=== PATIENT | male | born 1960 ===

== ENCOUNTER 2024-11-13 16:22 | Outpatient (AMB) | payer OTHER, SELFPAY ==
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
--- OUTSIDE RECORDS SUMMARY | 2024-11-13 17:06 | XMS_ITS | Encounter Summary ---
Author Organization [facility] Address [address] [place] [address] Phone Care Team Providers Care Crime Lab Analyst Name Role Phone Thierry Mariee MD Primary Care Provider [phone] Mustapha Alcazar MD, MPH Primary Care Provider + Sabrina Brewster MD Primary Care Provider [phone] Get Pollack MD Primary Care Provider [phone] Encounter Details Date Type Department Care Team (Late st Contact Info) Description 03/08/2023 Procedure Pass [facility], Ct Scan - [address] [address] Social History Tobacco Use Types Packs/Day Years Used Date Smoking Tobacco: Former Cigarettes 1 979 - 1984 Smokeless Tobacco: Never Alcohol Use Standard Drinks/Week Comments No 0 (1 standard drink = 0.6 oz pur e alcohol) Education Answer Date Recorded Are you interested in more education? Not on shanthi e 07/15/2022 Are you concerned about learning? Not on file 07/15/2022 No 07/15/2022 No 07/15/2022 Digital Access Answer Date Recorded No 08/13/2022 No 08/13/2022 Reliable internet access at home? Not on file 08/13/2022 Device with a working camera? Not on file Intimate Partner Violence Answer Date R ecorded Are you denied basic needs s uch as food, clothing, or medical care? No 03/08/2023 In the past 12 months have y ou been in a relationship with a person who hurts, threatens, or tries to control you? No 03/08/2023 Are you denied basic needs s uch as food, clothing, or medical care? No 03/08/2023 In the past 12 months have y ou been in a relationship with a person who hurts, threatens, or tries to control you? No 03/08/2023 Sex and Gender Information Value Date Recorded Sex Assigned at Male 06/09/2019 12:42 PM EDT Legal Sex Male 9:48 PM EDT Gender Identity Male 06/09/2019 12:42 PM EDT Sexual Orientation Straight 06/09/2019 12 :42 PM EDT documented as of this encounter Functional Status * Calculated C-SSRS Risk Score (Lifetime/Recent) Answer Date of Assessment Author No Risk Indicated 03/08/2023 5:04 PM Tyrone Santiago, JANY * [place] Suicide Severity Rating Scale (Screener/Recent Self-Report) Question Answer Date of Assessment Author 1. Wish to be (Past 1 Month) No 023 5:04 PM Tyrone Santiago, RN 2. Non-Specific Active Suici alexy Thoughts (Past 1 Month) No 03/08/2023 5:04 PM Guillermina Santiago, RN 6. Suicidal Behavior (Lifetime) No 3 5:04 PM Tyrone Santiago, RN documented as of this encounter Plan of Treatment Upcoming Encounters Date Type Department Care Team (Late st Contact Info) Description 03/26/2025 8:00 AM EST Office Visit [facility] [address] [place] [address] 3rd Floor, [address] [place] [address] Tyrell Alas MD [address] [place] [address], [address] [address] [email or web address] documented as of this encounter Visit Diagnoses Not on filedocumented in this encounter Additional Health Concerns Infection Onset Date Last Indicated Resolved Time CoV-Risk 05/25/2023 05/25/2023 06/05/2023 1:22 AM EDT CoV-Risk 11/20/2023 11/20/2023 11/20/2023 2:44 PM EDT COVID-19 11/20/2023 11/20/2023 12/11/2023 1:24 AM EDT CoV-Risk 04/24/2024 04/24/2024 05/05/2024 1:22 AM EST documented as of this encounter Care Teams Crime Lab Analyst Relationship Specialty Start Date End Date Thierry Mariee MD [address] [place] [address] [email or web address] PCP - General Family Medicine 03/08/23 05/24/23 Mustapha Alcazar MD, MPH [address] [place] [address] [email or web address] PCP - General Family Medicine 05/25/23 11/19/23 Sabrina Brewster MD [address] [place] [address] PCP - General Infectious Diseases 11/20/23 04/23/24 Get Pollack MD [address] [place] [address] [place] [phone] [email or web address] PCP - General Internal Medicine 04/24/24 documented as of this encounter Additional Source Comments The information contained in this document represents components of the legal health record. It is not the complete legal health record.[facility]
--- OUTSIDE RECORDS SUMMARY | 2024-11-13 17:06 | XMS_ITS | Encounter Summary ---
Author Organization [facility] Address [address] [facility] [address] [place] [address] Phone Care Team Providers Care Salvage Worker Name Role Phone Thierry Mariee MD Primary Care Provider [phone] Mustapha Alcazra MD, MPH Primary Care Provider + Sabrina Brewster MD Primary Care Provider [phone] Get Pollack MD Primary Care Provider [phone] Encounter Details Date Type Department Care Team (Late st Contact Info) Description 03/08/2023 Procedure Pass [facility], [address] [address] Social History Tobacco Use Types Packs/Day Years [...] 03/08/2023 5:04 PM Tyrone Santiago, JANY * [place] Suicide Severity Rating Scale (Screener/Recent Self-Report) Question [...] Description 03/26/2025 8:00 AM EST Office Visit [facility] [address] [place] [address] 3rd Floor, [address] [place] [address] Tyrell Alas MD [address] [place] [address], [address] [address] [email or web address] documented as of this encounter Visit Diagnoses Not on filedocumented in this encounter Additional Health Concerns Infection Onset Date Last Indicated Resolved Time CoV-Risk 05/25/2023 05/25/2023 06/05/2023 1:22 AM EDT CoV-Risk 11/20/2023 11/20/2023 11/20/2023 2:44 PM EDT COVID-19 11/20/2023 11/20/2023 12/11/2023 1:24 AM EDT CoV-Risk 04/24/2024 04/24/2024 05/05/2024 1:22 AM EST documented as of this encounter Care Teams Salvage Worker Relationship Specialty Start Date End Date hTierry Mariee MD [address] [place] [address] [email or web address] PCP - General Family Medicine 03/08/23 05/24/23 Mustapha Alcazar MD, MPH [address] [place] [address] [email or web address] PCP - General Family Medicine 05/25/23 11/19/23 Sabrina Brewster MD [address] [place] [address] PCP - General Infectious Diseases 11/20/23 04/23/24 Get Pollack MD [address] [place] [address] [place] [address] [email or web address] PCP - General Internal Medicine 04/24/24 documented as of this encounter Additional Source Comments The information contained in this document represents components of the legal health record. It is not the complete legal health record.[facility]
--- OUTSIDE RECORDS SUMMARY | 2024-11-13 17:06 | XMS_ITS | Encounter Summary ---
Author Organization [facility] Address [address] [facility] [address] [place] [address] Phone Care Team Providers Care Senior Materials Analyst Name Role Phone Thierry Mariee MD Primary Care Provider [phone] Mustapha Alcazar MD, MPH Primary Care Provider + Sabrina Brewster MD Primary Care Provider [phone] Get Pollack MD Primary Care Provider [phone] Encounter Details Date Type Department Care Team (Late st Contact Info) Description 03/08/2023 Procedure Pass [facility], Ct Scan - [address] [address] Social History Tobacco Use Types Packs/Day Years [...] 03/08/2023 5:04 PM Tyrone Santiago, JANY * [place] Suicide Severity Rating Scale (Screener/Recent Self-Report) Question [...] Description 03/26/2025 8:00 AM EST Office Visit [facility] [address] [place] [address] 3rd Floor, [address] [place] [address] Tyrell Alas MD [address] [place] [address], [address] [address] [email or web address] documented as of this encounter Visit Diagnoses Not on filedocumented in this encounter Additional Health Concerns Infection Onset Date Last Indicated Resolved Time CoV-Risk 05/25/2023 05/25/2023 06/05/2023 1:22 AM EDT CoV-Risk 11/20/2023 11/20/2023 11/20/2023 2:44 PM EDT COVID-19 11/20/2023 11/20/2023 12/11/2023 1:24 AM EDT CoV-Risk 04/24/2024 04/24/2024 05/05/2024 1:22 AM EST documented as of this encounter Care Teams Senior Materials Analyst Relationship Specialty Start Date End Date Thierry Mariee MD [address] [place] [address] [email or web address] PCP - General Family Medicine 03/08/23 05/24/23 Mustapha Alcazar MD, MPH [address] [place] [address] [email or web address] PCP - General Family Medicine 05/25/23 11/19/23 Sabrina Brewster MD [address] [place] [address] PCP - General Infectious Diseases 11/20/23 04/23/24 Get Pollack MD [address] [place] [address] [place] [address] [email or web address] PCP - General Internal Medicine 04/24/24 documented as of this encounter Additional Source Comments The information contained in this document represents components of the legal health record. It is not the complete legal health record.[facility]
--- OUTSIDE RECORDS SUMMARY | 2024-11-13 17:06 | XMS_ITS | Encounter Summary ---
Author Organization [facility] Address [address] [place] [address] [place] [address] Phone Care Team Providers Care Education Analyst Name Role Phone George Baca MD Primary Care Provider George Baca MD Unavailable [phone] Miguel Evans MD Unavailable Juan Antonio Wall DO Unavailable Mynor Kumari CHIP PERSON Unavailable Ida Whitlock MD Unavailable George Baca MD Unavailable [phone] Unknown, Unknown Primary Care Provider UnavaThierry Hammonds MD Unavailable Mustapha Alcazar MD, MPH Primary Care Provider + Mustapha Alcazar MD, MPH Unavailable Thierry Mariee MD Primary Care Provider [phone] Thierry Mariee MD Unavailable Thierry Mariee MD Primary Care Provider [phone] Mustapha Alcazar MD, MPH Primary Care Provider + Sabrina Brewster MD Primary Care Provider Get Pollack MD Primary Care Provider + [phone] Encounter Details Date Type Department Care Team (Late st Contact Info) Description 07/17/2017 Procedure Pass [facility], Ct Scan - [address] [address] Social History Tobacco Use Types Packs/Day Years Used Date Smoking Tobacco: Former Alcohol Use Standard Drinks/Week Comments No 0 (1 standard drink = 0.6 oz pur e alcohol) Sex and Gender Information Value Date Recorded Sex Assigned at Male 06/09/2019 12:42 PM EDT Legal Sex Male 9:48 PM EDT Gender Identity Male 06/09/2019 12:42 PM EDT Sexual Orientation Straight 06/09/2019 12 :42 PM EDT documented as of this encounter Plan of Treatment Upcoming Encounters Date Type Department Care Team (Late Contact Info) Description 03/26/2025 8:00 AM EST Office Visit [facility] [address] [place] [address] 3rd Floor, [address] [place] [address] Tyrell Alas MD [address] [place] [address] [email or web address] documented as of this encounter Visit Diagnoses Not on filedocumented in this encounter Additional Health Concerns Infection Onset Date Last Indicated Resolved Time CoV-Risk 05/25/2023 05/25/2023 06/05/2023 1:22 AM EDT CoV-Risk 11/20/2023 11/20/2023 11/20/2023 2:44 PM EDT COVID-19 11/20/2023 11/20/2023 12/11/2023 1:24 AM EDT CoV-Risk 04/24/2024 04/24/2024 05/05/2024 1:22 AM EST documented as of this encounter Care Teams Education Analyst Relationship Specialty Start Date End Date George Baca MD [address] [place] [address] PCP - General 01/03/17 04/02/21 Unknown, George, PCP - General 04/03/21 08/18/21 Mustapha Alcazar MD, MPH [address] [place] [address] [email or web address] PCP - General Family Medicine 08/19/21 12/08/21 Thierry Mariee MD [address] [place] [address] [email or web address] PCP - General Family Medicine 12/09/21 03/07/23 Thierry Mariee MD [address] [place] [address] [email or web address] PCP - General Family Medicine 03/08/23 05/24/23 Mustapha Alcazar MD, MPH [address] [place] [address] [email or web address] PCP - General Family Medicine 05/25/23 11/19/23 Sabrina Brewster MD [address] [place] [address] PCP - General Infectious Diseases 11/20/23 04/23/24 Get Pollack MD [address] [place] [address] [place] [address] PCP - General Internal Medicine 04/24/24 George Baca MD [address] [place] [address] Historical LMR Provider 01/05/17 2 Miguel Evans MD [address] [place] [address], [facility] [address] [place] [address] Historical LMR Provider 01/05/17 03/27/21 Juan Antonio Wall DO [address] [facility] [address] [place] [address] j Historical LMR Provider 01/05/17 03/27/21 Mynor Kumari CNP [address] [facility], 2nd [place] [address] Historical LMR Provider 01/05/17 03/27/21 Ida Whitlock MD [address] [place] [address] [email or web address] Historical LMR Provider 01/05/17 03/27/21 George Baca MD [address] [place] [address] Insurance Assigned Provider 06/17/17 04/25/21 Thierry Mariee MD [address] [place] [address] Insurance Assigned Provider 04/25/21 10/23/21 Mustapha Alcazar MD, MPH [address] [place] [address] Insurance Assigned Provider 10/23/21 01/23/22 Thierry Mariee MD [address] [place] [address] [email or web address] Insurance Assigned Provider 01/23/22 11/26/22 documented as of this encounter Additional Source Comments The information contained in this document represents components of the legal health record. It is not the complete legal health record.[facility]
--- OUTSIDE RECORDS SUMMARY | 2024-11-13 17:06 | XMS_ITS | Encounter Summary ---
Author Organization [facility] Address [address] [place] [address] [place] [address] Phone Care Team Providers Care Plodding Machine Operator Name Role Phone George Baca MD Primary Care Provider George Baca MD Unavailable [phone] Miguel Evans MD Unavailable [phone] Juan Antonio Wall DO Unavailable Mynor Kumari AVIONICS MECHANIC Unavailable Ida Whitlock MD Unavailable George Baca MD Unavailable [phone] Unknown, Unknown Primary Care Provider UnavaThierry [...] Get Pollack MD Primary Care Provider + [phone] Encounter Details Date Type Department Care Team (Late st Contact Info) Description 03/08/2019 Procedure Pass [facility], [facility] - [address] [place] [address] Social History Tobacco Use Types Packs/Day Years [...] PM EDT documented as of this encounter Last Filed Vital Signs Vital Sign Reading Time Taken Comments Blood Pressure - - Pulse - - Temperature - - Respiratory Rate - - Oxygen Saturation - - Inhaled Oxygen Concentration - - Weight 120.2 kg (265 lb) 03/11/2019 10:42 AM EST Height 175.3 cm (5' 9 ) 03/11/2019 10:42 AM EST Body Mass Index 39.13 03/11/2019 10:42 AM EST documented in this encounter Plan of Treatment Upcoming Encounters Date Type Department Care Team (Late st Contact Info) Description 03/26/2025 8:00 AM EST Office Visit [facility] [address] [place] [address] 3rd Floor, [address] [place] [address] Tyrell Alas MD [address] [address] [email or web address] documented as of this encounter Visit Diagnoses Not on filedocumented in this encounter Additional Health Concerns Infection Onset Date Last Indicated Resolved Time CoV-Risk 05/25/2023 05/25/2023 06/05/2023 1:22 AM EDT CoV-Risk 11/20/2023 11/20/2023 11/20/2023 2:44 PM EDT COVID-19 11/20/2023 11/20/2023 12/11/2023 1:24 AM EDT CoV-Risk 04/24/2024 04/24/2024 05/05/2024 1:22 AM EST documented as of this encounter Care Teams Plodding Machine Operator Relationship Specialty Start Date End Date George Baca MD [address] [place] [phone] [email or web address] PCP - General 01/03/17 04/02/21 George Vazquez MD PCP - General 04/03/21 08/18/21 Mustapha Alcazar MD, MPH [address] [place] [address] [email or web address] PCP - General Family Medicine 08/19/21 12/08/21 Thierry Mariee MD [address] [place] [address] [email or web address] PCP - General Family Medicine 12/09/21 03/07/23 Thierry Mariee MD [address] [place] [address] [email or web address] PCP - General Family Medicine 03/08/23 05/24/23 Mustapha Alcazar MD, MPH [address] [place] [address] [email or web address] PCP - General Family Medicine 05/25/23 11/19/23 Sabrina Brewster MD [address] [place] [address] PCP - General Infectious Diseases 11/20/23 04/23/24 Get Pollack MD [address] [place] [address] [place] [address] [email or web address] PCP - General Internal Medicine 04/24/24 George Baca MD [address] [place] [address] [email or web address] Historical LMR Provider 01/05/17 2 Miguel Evans MD [address] [facility], [address] [place] [address] [email or web address] Historical LMR Provider 01/05/17 03/27/21 Juan Antonio Wall DO [address] [facility] [address] [place] [address] [email or web address] Historical LMR Provider 01/05/17 03/27/21 Mynor Kumari AVIONICS MECHANIC [address] [facility], 2nd [place] [address] [email or web address] Historical LMR Provider 01/05/17 03/27/21 Ida Whitlock MD [address] [place] [address] [email or web address] Historical LMR Provider 01/05/17 03/27/21 George Baca MD [address] [place] [address] [email or web address] Insurance Assigned Provider 06/17/17 04/25/21 Thierry Mariee MD [address] [place] [address] [email or web address] Insurance Assigned Provider 04/25/21 10/23/21 Mustapha Alcazar MD, MPH [address] [place] [address] [email or web address] Insurance Assigned Provider 10/23/21 01/23/22 Thierry Mariee MD [address] [place] [address] [email or web address] Insurance Assigned Provider 01/23/22 11/26/22 documented as of this encounter Additional Source Comments The information contained in this document represents components of the legal health record. It is not the complete legal health record.[facility]
--- OUTSIDE RECORDS SUMMARY | 2024-11-13 17:06 | XMS_ITS | Encounter Summary ---
Author Organization [facility] Address [address] [place] [address] Phone Care Team Providers Care Cooler Service Supervisor Name Role Phone Unknown, Unknown Primary Care Provider Thierry Santiago MD Unavailable Mustapha Alcazar MD, MPH Primary Care Provider + Mustapha Alcazar MD, MPH Unavailable Thierry Mariee MD Primary Care Provider [phone] Thierry Mariee MD Unavailable Thierry Mariee MD Primary Care Provider Mustapha Alcazar MD, MPH Primary Care Provider + Sabrina Brewster MD Primary Care Provider [phone] Get Pollack MD Primary Care Provider [phone] Encounter Details Date Type Department Care Team (Late st Contact Info) Description 05/20/2021 Procedure Pass [facility] Endoscopy Admitting Dept Virtual Department [address] [place], [place] [id number] Social History Tobacco Use Types Packs/Day Years [...] Description 03/26/2025 8:00 AM EST Office Visit [facility] [address] [place] [address] 3rd Floor, [address] [place] [address] Tyrell Alas MD [address] [place] [address], [address] [address] [email or web address] documented as of this encounter Visit Diagnoses Not on filedocumented in this encounter Additional Health Concerns Infection Onset Date Last Indicated Resolved Time CoV-Risk 05/25/2023 05/25/2023 06/05/2023 1:22 AM EDT CoV-Risk 11/20/2023 11/20/2023 11/20/2023 2:44 PM EDT COVID-19 11/20/2023 11/20/2023 12/11/2023 1:24 AM EDT CoV-Risk 04/24/2024 04/24/2024 05/05/2024 1:22 AM EST documented as of this encounter Care Teams Cooler Service Supervisor Relationship Specialty Start Date End Date Unknown, Unknown, MD PCP - General 04/03/21 08/18/21 Mustapha Alcazar MD, MPH [address] [place] [address] [email or web address] PCP - General Family Medicine 08/19/21 12/08/21 Thierry Mariee MD [address] [place] [address] [email or web address] PCP - General Family Medicine 12/09/21 03/07/23 Thierry Mariee MD [address] [place] [address] [email or web address] PCP - General Family Medicine 03/08/23 05/24/23 Mustapha Alcazar MD, MPH [address] [place] [id number] [email or web address] PCP - General Family Medicine 05/25/23 11/19/23 Sabrina Brewster MD [address] [place] [phone] PCP - General Infectious Diseases 11/20/23 04/23/24 Get Pollack MD [address] [place] [address] [place] [address] [email or web address] PCP - General Internal Medicine 04/24/24 Thierry Mariee MD [address] [place] [address] [email or web address] Insurance Assigned Provider 04/25/21 10/23/21 Mustapha Alcazar MD, MPH [address] [place] [address] [email or web address] Insurance Assigned Provider 10/23/21 01/23/22 Thierry Mariee MD [address] [place] [address] [email or web address] Insurance Assigned Provider 01/23/22 11/26/22 documented as of this encounter Additional Source Comments The information contained in this document represents components of the legal health record. It is not the complete legal health record.[facility]
--- OUTSIDE RECORDS SUMMARY | 2024-11-13 17:06 | XMS_ITS | Encounter Summary ---
Author Organization [facility] Address [address] [place] [address] [place] [address] Phone Care Team Providers Care Ribbing Machine Operator Name Role Phone Soco Baca MD Primary Care Provider Soco Baca MD Unavailable [phone] Miguel Evans MD Unavailable [phone] Juan Antonio Wall DO Unavailable Mynor Kumari EMBALMER/FUNERAL DIRECTOR Unavailable Ida Whitlock MD Unavailable Soco Baca MD Unavailable [phone] Unknown, Unknown Primary Care Provider UnavaThierry Hammonds MD Unavailable Mustapha Alcazar MD, MPH Primary Care Provider + Mustapha Alcazar MD, MPH Unavailable Thierry Mariee MD Primary Care Provider Thierry Mariee MD Unavailable Thierry Mariee MD Primary Care Provider [phone] Mustapha Alcazar MD, MPH Primary Care Provider + Sabrina Brewster MD Primary Care Provider Get Pollack MD Primary Care Provider + [phone] Reason for Referral * MRI/CAT Scan - Closed Specialty Diagnoses / Procedures Referred By Bella lynn Referred To Contact Radiology Diagnoses Transient cerebral ischemia, unspecified type Procedures MRI Brain Thierry Mariee MD Phone: tel: fax: [email or web address] Referral ID Status Reason Start Date Expiration Date Visits Re quested Visits Authorized [id number] Closed 03/08/2019 03/08/2020 1 1 Encounter Details Date Type Department Care Team (Latest Contact Info) Description 03/08/2019 Transcribe Orders [facility] Department [address] [place] [address] Thierry Mariee MD [address] [place] [phone] [email or web address] Transient cerebral ischemia, unspecified type (Primary Dx) Social History Tobacco Use Types Packs/Day Years [...] Description 03/26/2025 8:00 AM EST Office Visit [facility] [address] [place] [address] 3rd Floor, [address] [place] [address] Tyrell Alas MD [address] [place] [phone] [email or web address] documented as of this encounter Results * MRI BRAIN WITHOUT CONTRAST (03/12/2019 9:51 AM EST) Anatomical Region Laterality Modality Head Magnetic Resonan ce 03/12/2019 10:0 7 AM EST Impressions 03/12/2019 10:10 AM EST No evidence of acute ischemia, mass, or other significant parenchymal pathology. POS - [id number] Narrative 03/12/2019 10:10 AM EST TECHNIQUE: Exam performed on a 1.5 Saundra high-field MRI scanner. Axial T1, T2, T2*, T2 FLAIR and diffusion-weighted imaging with ADC map, sagittal T1 sequences were obtained. FINDINGS: No prior comparison studies are available. There is no evidence of intracranial hemorrhage, acute ischemia, or mass. Brain parenchyma is essentially normal estes-white matter signal intensity and distribution. Ventricles and cerebral sulci are felt to be within normal limits overall size for patient age. Cerebellar tonsils are not ectopic. No pathologic extra-axial fluid collections are noted. There is slight flattening of the pituitary gland suggesting empty sella. Normal flow-voids appear to be present in the major intracranial arteries at the base. No gross orbital lesion. Mild inflammatory signal changes are present in the ethmoid air cells with minimal mucosal thickening present at the base of the maxillary antra. Minimal non-specific fluid in the left mastoid air cells. Procedure Note Soco Munoz MD - 03/12/2019 TECHNIQUE: Exam performed on a 1.5 Saundra high-field MRI scanner. AxialT1, T2, T2*, T2 FLAIR and diffusion-weighted imaging with ADC map,sagittal T1 sequences were obtained. FINDINGS: No prior comparison studies are available. There is no evidence ofintracranial hemorrhage, acute ischemia, or mass. Brain parenchyma isessentially normal estes- white matter signal intensity and distribution.Ventricles and cerebral sulci are felt to be within normal limits overallsize for patient age. Cerebellar tonsils are not ectopic. No pathologicextra-axial fluid collections are noted. There is slight flattening ofthe pituitary gland suggesting empty sella. Normal flow-voids appear yvette present in the major intracranial arteries at the base. No grossorbital lesion. Mild inflammatory signal changes are present in theethmoid air cells with minimal mucosal thickening present at the base ofthe maxillary antra. Minimal non-specific fluid in the left mastoid aircells. IMPRESSION: No evidence of acute ischemia, mass, or other significant parenchymalpathology. POS - [id number] Thierry Mariee MD IMG MR HEAD/NECK Final Result documented in this encounter Visit Diagnoses Diagnosis Transient cerebral ischemia, unspecified type- Primary Transient cerebral ischemia, unspecified type documented in this encounter Additional Health Concerns Infection Onset Date Last Indicated Resolved Time CoV-Risk 05/25/2023 05/25/2023 06/05/2023 1:22 AM EDT CoV-Risk 11/20/2023 11/20/2023 11/20/2023 2:44 PM EDT COVID-19 11/20/2023 11/20/2023 12/11/2023 1:24 AM EDT CoV-Risk 04/24/2024 04/24/2024 05/05/2024 1:22 AM EST documented as of this encounter Care Teams Ribbing Machine Operator Relationship Specialty Start Date End Date Soco Baca MD [address] [place] [address] [email or web address] PCP - General 01/03/17 04/02/21 Unknown, [place], PCP - General 04/03/21 08/18/21 Mustapha Alcazar MD, MPH [address] [place] [address] [email or web address] PCP - General Family Medicine 08/19/21 12/08/21 Thierry Mariee MD [address] [place] [address] [email or web address] PCP - General Family Medicine 12/09/21 03/07/23 Thierry Mariee MD [address] [place] [address] [email or web address] PCP - General Family Medicine 03/08/23 05/24/23 Mustapha Alcazar MD, MPH [address] [place] [address] PCP - General Family Medicine 05/25/23 11/19/23 Sabrina Brewster MD [address] [place] [address] PCP - General Infectious Diseases 11/20/23 04/23/24 Get Pollack MD [address] [place] [address] [place] [phone] [email or web address] PCP - General Internal Medicine 04/24/24 Soco Baca MD [address] [place] [address] [email or web address] Historical LMR Provider 01/05/17 2 Miguel Evans MD [address] [facility], [address] [address] [email or web address] Historical LMR Provider 01/05/17 03/27/21 Juan Antonio Wall DO [address] [address] j Historical LMR Provider 01/05/17 03/27/21 Mynor Kumari, EMBALMER/FUNERAL DIRECTOR [address] [facility], 2nd [place] [address] Historical LMR Provider 01/05/17 03/27/21 Ida Whitlock MD [address] [place] [address] [email or web address] Historical LMR Provider 01/05/17 03/27/21 Soco Baca MD [address] [place] [address] [email or web address] Insurance Assigned Provider 06/17/17 04/25/21 Thierry Mariee MD [address] [place] [address] [email or web address] Insurance Assigned Provider 04/25/21 10/23/21 Mustapha Alcazar MD, MPH [address] [place] [address] [email or web address] Insurance Assigned Provider 10/23/21 01/23/22 Thierry Mariee MD [address] [place] [address] [email or web address] Insurance Assigned Provider 01/23/22 11/26/22 documented as of this encounter Additional Source Comments The information contained in this document represents components of the legal health record. It is not the complete legal health record.[facility]
--- OUTSIDE RECORDS SUMMARY | 2024-11-13 17:06 | XMS_ITS | Encounter Summary ---
Author Organization [facility] Address [address] [place] [address] [place] [address] Phone Care Team Providers Care Pinion Sorter Name Role Phone Mustapha Alcazar MD, MPH Unavailable Thierry Mariee MD Primary Care Provider Thierry Mariee MD Unavailable Thierry Mariee MD Primary Care Provider [phone] Mustapha Alcazar MD, MPH Primary Care Provider + Sabrina Brewster MD Primary Care Provider [phone] Get Pollack MD Primary Care Provider [phone] Encounter Details Date Type Department Care Team (Late st Contact Info) Description 12/09/2021 Procedure Pass [facility] Endoscopy Admitting Dept Virtual Department [address] [place] [address] Social History Tobacco Use Types Packs/Day Years [...] Description 03/26/2025 8:00 AM EST Office Visit [facility] [address] [place] [address] [address]rd Floor, [address] [place] [address] Tyrell Alas MD [address] [facility], [address] [place] [address] [email or web address] documented as of this encounter Visit Diagnoses Not on filedocumented in this encounter Additional Health Concerns Infection Onset Date Last Indicated Resolved Time CoV-Risk 05/25/2023 05/25/2023 06/05/2023 1:22 AM EDT CoV-Risk 11/20/2023 11/20/2023 11/20/2023 2:44 PM EDT COVID-19 11/20/2023 11/20/2023 12/11/2023 1:24 AM EDT CoV-Risk 04/24/2024 04/24/2024 05/05/2024 1:22 AM EST documented as of this encounter Care Teams Pinion Sorter Relationship Specialty Start Date End Date Thierry Mariee MD [address] [place] [address] [email or web address] PCP - General Family Medicine 12/09/21 03/07/23 Thierry Mariee MD [address] [place] [address] [email or web address] PCP - General Family Medicine 03/08/23 05/24/23 Mustapha Alcazar MD, MPH [address] [place] [address] [email or web address] PCP - General Family Medicine 05/25/23 11/19/23 Sabrina Brewster MD [address] [place] [address] PCP - General Infectious Diseases 11/20/23 04/23/24 Get Pollack MD [address] [place] [address] [place] [address] [email or web address] - General Internal Medicine 04/24/24 Mustapha Alcazar MD, MPH [address] [place] [address] [email or web address] Insurance Assigned Provider 10/23/21 01/23/22 Thierry Mariee MD [address] [place] [address] [email or web address] Insurance Assigned Provider 01/23/22 11/26/22 documented as of this encounter Additional Source Comments The information contained in this document represents components of the legal health record. It is not the complete legal health record.[facility]
--- OUTSIDE RECORDS SUMMARY | 2024-11-13 17:06 | XMS_ITS | Clinical Summary ---
Author Organization [facility] Address [address] [place] [address] Phone Care Team Providers Care [employer] Middle[employer] Developer Name Role Phone Get Pollack MD Primary Care Provider [phone] Allergies No known active allergies Medications sertraline (ZOLOFT) 100 MG tablet Take 100 mg by mouth every morning. 04/25/2021 Active aspirin 81 MG EC tablet Take 81 mg by mouth daily. Active lamoTRIgine (LAMICTAL) 150 MG IMMEDIATE release tablet Take 200 mg by mouth 2 (two) times a day. 11/30/2021 Active methylphenidate HCl 36 MG ER tablet Take 36 mg by mouth every morning. 01/04/2023 Active Active Problems Problem Noted Date Diagnosed Date Vertigo 03/08/2023 Assessment & Plan (03/09/2023 4:06 PM EST): Patient presented with symptoms of dizziness, described as sensation as if the he is unable to be steady, and felt constant movement, denies any change in hearing, no recent ill contacts. Initial extensive imaging including CTA of the head and neck was unremarkable. Neurology was consulted recommended MRI of the brain initially, as well as aspirin which was administered in the ER. Alert & oriented x 3, CN 2-12 normal, normal motor function, normal sensory function, no focal deficits noted. Neuro exam with HINTS did reveal possible rotational nystagmus with leftward impulse suggesting this is likely BPPV. There is no skew deviation. MRI shows no evidence of ischemia or interval change from 2019 Presentation appears most consistent with a peripheral vertigo, possibly exacerbated by extra dose of lamotrigine --PT/OT consult -- As needed meclizine -- Continue ASA 81 mg daily Seizure disorder 03/08/2023 Assessment & Plan (03/09/2023 4:06 PM EST): Seizure disorder Has been well-controlled, last seizure 6 years ago -- Continue lamotrigine Encounters Date Type Department Care Team Description 09/09/2024 Telephone [facility] [address] [place] [address] Tyrell Alas MD 09/03/2024 6:45 AM EDT - 09/03/2024 1:49 PM EDT Emergency [facility] [address] [place] [address] Siva Key MD, SHILA Discharge Disposition: Home or Self Care from Last 3 Months Social History Tobacco Use Types Packs/Day Years Used Date Smoking Tobacco: Former Cigarettes 1 979 - 1984 Smokeless Tobacco: Never Tobacco Cessation:Counseling Given: Not Answered Alcohol Use Standard Drinks/Week Comments No 0 (1 standard drink = 0.6 oz pur e alcohol) Education Answer Date Recorded Are you interested in more education? Not on shanthi e 07/15/2022 Are you concerned about learning? Not on file 07/15/2022 No 07/15/2022 No 07/15/2022 Food Answer Date Recorded Within the past 6 months we worried whether our food would run out before we got money to buy more. Never True 09/03/2024 Within the past 6 months the food we bought just didn't last and we didn't have enough money to get more. Never True Residential Stability Answer Date Recor ded What is your housing situation today? I have mejia sing 09/03/2024 How many times have you move d in the past 12 months? Zero (I did not move) 09/03/2024 Paying for Meds Answer Date Recorded Do you have trouble paying for medicines? No 09/03/2024 Paying Utility Bills Answer Date Record ed Do you have trouble paying your heating or elect ricity bill? No 09/03/2024 Transportation Answer Date Recorded Has the lack of transportati on kept you from medical appointments or from getting medications? No 09/03/2024 Digital Access Answer Date Recorded No 09/03/2024 Yes 09/03/2024 Do you have reliable internet access at home? Ye s 09/03/2024 Do you have a device (e.g., phone, tablet, computer) with a working camera? Yes 09/03/2024 Intimate Partner Violence Answer Date R ecorded Are you denied basic needs s uch as food, clothing, or medical care? No 09/03/2024 In the past 12 months have y ou been in a relationship with a person who hurts, threatens, or tries to control you? No 09/03/2024 Are you denied basic needs s uch as food, clothing, or medical care? No 09/03/2024 In the past 12 months have y ou been in a relationship with a person who hurts, threatens, or tries to control you? No 09/03/2024 Sex and Gender Information Value Date Recorded Sex Assigned at Male 06/09/2019 12:42 PM EDT Legal Sex Male 9:48 PM EDT Gender Identity Male 06/09/2019 12:42 PM EDT Sexual Orientation Straight 06/09/2019 12 :42 PM EDT Last Filed Vital Signs Vital Sign Reading Time Taken Comments Blood Pressure 111/63 09/03/2024 1:30 PM EDT Pulse 69 09/03/2024 1:30 PM EDT Temperature 36.8 C (98.2 F) 09/03/2024 1:30 PM EDT Respiratory Rate 16 09/03/2024 1:30 PM EDT Oxygen Saturation 99% 09/03/2024 1:30 PM EDT Inhaled Oxygen Concentration - - Weight 120.7 kg (266 lb) 05/25/2023 11:56 AM EST Height 175.3 cm (5' 9 ) 05/25/2023 11:56 AM EST Body Mass Index 39.28 05/25/2023 11:56 AM EST Plan of Treatment Upcoming Encounters Date Type Department Care Team (Late st Contact Info) Description 03/26/2025 8:00 AM EST Office Visit [facility] [address], [address] [place] [address] Tyrell Alas MD [address] [place] [address], [address] [place] [address] [email or web address] Health Maintenance Due Date Last Done Comments DEPRESSION SCREENING 1972 HEPATITIS C SCREENING 1978 HIV ONE-TIME SCREENING (18-65 YEARS) 1978 COLOGUARD 2005 FIT TEST 2005 FOBT 2005 SIGMOIDOSCOPY 2005 VIRTUAL COLONOSCOPY 2005 PNEUMOCOCCAL VACCINES (50+ years) (2 of 2 - PCV) 06/17/2016 06/18/2015 SMOKING Hx and SMOKELESS TOBACCO SCREENING 04/24/2025 04/24/2024 LIPID PANEL 12/31/2025 12/31/2020 SCREENING FOR DIABETES 09/04/2027 09/03/2024, 2015 Adult Td,Tdap Booster 07/11/2028 07/11/2018 , 05/31/2014, 10/22/2008 COLONOSCOPY 12/10/2031 12/09/2021 COLORECTAL CANCER SCREENING 12/10/2031 ZOSTER VACCINES Completed 01/16/2021, 09/15/2020 RSV VACCINE Completed 12/23/2022 COVID-19 VACCINE Completed 01/13/2024, 08/2022, 12/22/2021, Additional history exists HEPATITIS A VACCINES Aged Out No long er eligible based on patient's age to complete this topic HIB VACCINES Aged Out No longer eligi ble based on patient's age to complete this topic MENINGOCOCCAL VACCINES (ACWY) Aged Out No longer eligible based on patient's age to complete this topic MENINGOCOCCAL VACCINES (B) Aged Out N o longer eligible based on patient's age to complete this topic Medical Devices Not on file Procedures Procedure Name Priority Date/Time Associated Diagnosis Comments TROPONIN STAT 09/03/2024 11:57 AM EDT D-DIMER STAT 09/03/2024 7:56 AM EDT TROPONIN STAT 09/03/2024 7:56 AM EDT LAB ADD ON STAT 09/03/2024 7:07 AM EDT TROPONIN STAT 09/03/2024 6:59 AM EDT BASIC METABOLIC PANEL STAT 09/03/2024 6:59 AM EDT CBC AND DIFFERENTIAL STAT 09/03/2024 6:59 AM EDT ECG 12-LEAD STAT 09/03/2024 6:52 AM EDT ENDOSCOPY, COLON 12/09/2021 12:2 9 PM EDT from Last 3 Months or Most Recently Relevant to Health Maintenance Results * Troponin (09/03/2024 11:57 AM EDT) Only the most recent of3 resultswithin the time period is included. Pathologist [facility] Troponin-T, HS Gen5 9 0 - 14 ng/L [facility] Blood 09/03/2024 11:5 7 AM EDT 09/03/2024 12:01 PM EDT [facility] Key MD, MBA LAB BLOOD ORDERABLES Fi nal Result Performing Organization Address [facility] Co de Phone Number [address] [address] * D-dimer (09/03/2024 7:56 AM EDT) D-DIMER 267 <500 ng/mL FEU [facility] Blood 09/03/2024 7:56 AM EDT 09/03/2024 8:00 AM EDT Siva Key MD, MBA LAB BLOOD ORDERABLES Fi nal Result Performing Organization Address [facility]/ZIP Co de Phone Number [address] [address] * Lab Add On: ddimer (09/03/2024 7:07 AM EDT) TEST REQUESTED DDIMER [facility] Comments (Chemistry) Add on order being processed. Floor or provider will be notified if testing cannot be performed [facility] 09/03/2024 7:07 AM EDT 09/03/2024 7:38 AM EDT Yesi LERMA MBA LAB BLOOD ORDERABLES Fi nal Result [facility] [address] [place] [address] * CBC and differential (09/03/2024 6:59 AM EDT) WBC 7.76 4.00 - 11.00 K/uL [facility] RBC 4.73 4.50 - 5.90 M/uL [facility] HGB 14.2 13.5 - 17.5 g/dL [facility] HCT 41.1 41.0 - 53.0 % [facility] PLT 217 150 - 450 K/uL [facility] MCV 86.9 80.0 - 100.0 fL [facility] MCH 30.0 27.0 - 31.0 pg [facility] MCHC 34.5 32.0 - 36.0 g/dL [facility] RDW 12.7 11.5 - 14.5 % [facility] MPV 10.3 8.4 - 12.0 fL [facility] NRBC 0.00 0.00 /100 WBCs [facility] ABSOLUTE NRBC 0.00 0.00 K/uL [facility] DIFF METHOD Auto [facility] NEUTS 60.7 48.0 - 76.0 % [facility] LYMPHS 24.9 18.0 - 41.0 % [facility] MONOS 9.4 4.0 - 11.0 % [facility] EOS 4.0 0.0 - 5.0 % [facility] BASOS 0.6 0.0 - 1.5 % [facility] Granulocytes, immature (%) 0.4 0.0 - 0.9 % [facility] ABSOLUTE NEUTS 4.71 1.92 - 7.60 K/uL [facility] ABSOLUTE LYMPHS 1.93 0.72 - 4.10 K/uL [facility] ABSOLUTE MONOS 0.73 0.16 - 1.10 K/uL [facility] ABSOLUTE EOS 0.31 0.00 - 0.50 K/uL [facility] ABSOLUTE BASOS 0.05 0.00 - 0.15 K/uL [facility] Granulocytes, immature 0.03 0.00 - 0.09 K/uL [facility] Blood 09/03/2024 6:59 AM EDT 09/03/2024 7:07 AM EDT Siva Key MD, MBA LAB BLOOD ORDERABLES Fi nal Result Performing Organization Address City/[facility]/ZIP Co de Phone Number [address] [address] * (ABNORMAL) Basic metabolic panel (09/03/2024 6:59 AM EDT) SODIUM 142 133 - 146 mmol/L [facility] CHLORIDE 108 96 - 108 mmol/L [facility] POTASSIUM 4.3 3.3 - 5.1 mmol/L [facility] CO2 25 21 - 35 mmol/L [facility] BUN 22(H) 6 - 19 mg/dL [facility] CREATININE 1.20 0.5 - 1.5 mg/dL [facility] GLUCOSE 106(H) 70 - 99 mg/dL [facility] CALCIUM 9.2 8.4 - 10.3 mg/dL [facility] EGFR 68 >59 mL/min/1.7 3m2 [facility] Comment:Estimated glomerular filtration rate calculated using the CKD-EPI refit equation. ANION GAP 13 10 - 20 mmol/L [facility] Blood 09/03/2024 6:59 AM EDT 09/03/2024 7:07 AM EDT Siva Key MD, MBA LAB BLOOD ORDERABLES Fi nal Result Performing Organization Address City/[facility]/ZIP Co de Phone Number [address] [address] * ECG 12-LEAD (09/03/2024 6:52 AM EDT) Ventricular Rate EKG/MIN 62 BPM [facility] Atrial Rate 62 BPM [facility] NE Interval 204 ms [facility] QRS Duration 114 ms [facility] QT Interval 424 ms [facility] QTC Interval 430 ms [facility] P Bonita 14 degrees [facility] R Wave Bonita -28 degrees [facility] T Wave [place] 31 degrees [facility] 09/03/2024 6:52 AM EDT 09/04/2024 8:06 AM EDT Narrative [facility] - 09/04/2024 8:06 AM EDT Normal sinus rhythm Incomplete right bundle branch block Borderline ECG When compared with ECG of 08-Mar-2023 17:14, No significant change was found Confirmed by Miguel Evans ([id number]) on 09/04/2024 8:06:07 AM Siva Key MD, SHILA ECG ORDERABLES Final R esult [facility] * ENDOSCOPY, COLON (12/09/2021 12:29 PM EDT) Narrative Transcriptions Soco Ware MD - 12/09/2021 12:29 PM EDT Patient Name: Silviano Larsen MD:: SOCO WARE MD Procedure Date: 12/09/2021 12:29 PM Date of : 1960 Age: 61 Admit Type: Outpatient Gender: [facility] Referring MD: NANCY MARIEE MD Exam Type: Colonoscopy Indications: High risk colon cancer surveillance: Personalhistory of colonic polyps, Last colonoscopy: November2014 Medications: Propofol per Anesthesia Procedure: Informed consent was obtained from the patientafter discussion of the indications, limitations, alternatives, benefits, and risks of the procedure. Risks specifically discussed include but are not limited to medication reactions, missed lesions, bleeding, perforation, or the need for emergent surgery. Throughout the procedure, the patient's blood pressure, pulse, end-tidal CO2, and oxygensaturations were monitored continuously. The Olympus adult variable colonoscope [id number] #3 was introduced through the anus and advanced to the cecum, identified by appendiceal orifice andileocecal valve. The ileocecal valve, appendiceal orifice,and rectum were photographed. The colonoscopy wassomewhat difficult due to significant looping. Successful completion of the procedure was aided by applying abdominal pressure. The patient tolerated the procedure well. The quality of the bowelpreparation was adequate to identify polyps. The bowelpreparation used was PEG in Gatoraide and/or Pedialyte viasplit dose instruction. Complications: No immediate complications. Estimated blood loss:None. Findings: The digital rectal exam was normal. Pertinent negatives include normal prostate (size, shape, and consistency). Hemorrhoids were found on perianal exam. Retroflexion in the rectum was not easilyaccomplished but a careful foreward view was obtained. Multiple medium-mouthed diverticula were found inthe entire colon. The colon (entire examined portion) wassignificantly redundant. A 7 mm polyp was found in the descending colon. The polyp was semi-pedunculated. The polyp was removed with a cold snare. Resection and retrieval were complete. The exam was otherwise without abnormality. Attempt was made to retroflex the scope in the ascending colon for further visualization but thiswas not easily accomplished and the effort aborted. A second careful survey of the ascending colon wasmade on forward viewing, instead. Impression: - Hemorrhoids found on perianal exam. - Diverticulosis in the entire examined colon. - Redundant colon. - One 7 mm polyp in the descending colon, removedwith a cold snare. Resected and retrieved. - The examination was otherwise normal. Recommendation: - High fiber diet. - Repeat colonoscopy in 5 years for surveillance. SOCO WARE MD 12/09/2021 1:08:37 PM This report has been signed electronically. Number of Addenda: 0 Note Initiated On: 12/09/2021 12:29 PM Procedure Code(s): --- Professional --- 10418, Colonoscopy, flexible; with removal of tumor(s), polyp(s), or other lesion(s) by snare technique --- Technical --- 01647, Colonoscopy, flexible; with removal of tumor(s), polyp(s), or other lesion(s) by snare technique Diagnosis Code(s): --- Professional --- Z86.010, Personal history of colonic polyps K64.9, Unspecified hemorrhoids K63.5, Polyp of colon K57.30, Diverticulosis of large intestine without perforation or abscess without bleeding Q43.8, Other specified congenital malformations of intestine --- Technical --- Z86.010, Personal history of colonic polyps K64.9, Unspecified hemorrhoids K63.5, Polyp of colon K57.30, Diverticulosis of large intestine without perforation or abscess without bleeding Q43.8, Other specified congenital malformations of intestine CPT copyright 2020 [employer]. All rights reserved. The codes documented in this report are preliminary and upon coder operator reviewmay be revised to meet current compliance requirements. Procedure Date: 12/09/2021 12:29:37 PM [address] [place] [address] Nancy Mariee MD GI PROCEDURE ORDERABLES Final Re sult from Last 3 Months or Most Recently Relevant to Health Maintenance Insurance [facility] PCP [facility] NON NSPG PCP [facility] [employer] NON NSPG PCP S[place] [employer] NON NSPG PCP S[place] [employer] CONNECTORCARE [facility] NON NSPG PCP [place] [facility] [facility] NON NSPG PCP [facility] CONNECTOR[facility] Advance Directives For more information, please contact: [phone] (9AM - 5PM [place], Monday-Monday) * Full Code (Latest Code Status on File) Date Activated Date Inactivated Comments 03/08/2023 8:50 PM Question Answer Comments Code Status Confirmed With: Patient Code Status Communicated To: Inpatient Attending Care Teams [employer] Developer Relationship Specialty Start Date End Date Get Pollack MD [address] [place] [address] [place] [phone] [email or web address] PCP - General Internal Medicine 04/24/24 Additional Source Comments The information contained in this document represents components of the legal health record. It is not the complete legal health record.[facility]
== END 2024-11-13 16:49 | disposition home or self-care (01) ==
LOC: HO.HSM 16:22
PROVIDERS: PCP Plastic Surgery; Referring Provider Plastic Surgery; Visit Provider Psychiatry & Neurology Neurology
DX: G40.109 Localization-related (focal) (partial) symptomatic epilepsy and epileptic syndromes with simple partial seizures, not intractable, without status epilepticus (principal); G25.3 Myoclonus
CPT/HCPCS: 99214

== ENCOUNTER → 2024-11-13 16:22 | Outpatient (BNVA) | payer OTHER, SELFPAY | PROVIDERS: PCP Plastic Surgery; Referring Provider Plastic Surgery; Visit Provider Psychiatry & Neurology Neurology | DX: G40.109 Localization-related (focal) (partial) symptomatic epilepsy and epileptic syndromes with simple partial seizures, not intractable, without status epilepticus (principal) | CPT/HCPCS: 99212 ==